=== PATIENT | male | born 1960 | race Caucasian/White ===

== ENCOUNTER 2019-01-13 02:29 | Emergency (ER) | payer OTHER ==
[2019-01-13] MEDS: DEXAMETHASONE 10 MG/ML 1 ML INJ IM (02:53)
[2019-01-13] MEDS: IPRATROPIUM (NEB) 0.5 MG/2.5 ML AMP INH (02:57)
[2019-01-13] MEDS: ALBUTEROL 0.5% (NEB) 2.5 MG/0.5 ML AMP INH (02:57)
== END 2019-01-13 04:43 | disposition home or self-care (01) ==
LOC: FTE 04:43
DX: J45.901 Unspecified asthma with (acute) exacerbation (principal)
CPT/HCPCS: 94644; 96372; 99284-25

== ENCOUNTER 2019-02-11 16:32 | Emergency (ER) | payer OTHER ==
[2019-02-11] MEDS: LIDOCAINE 1% (MPF) 5 ML VIAL INFIL (19:44)
== END 2019-02-11 21:59 | disposition home or self-care (01) ==
LOC: FTE 16:32
DX: K64.5 Perianal venous thrombosis (principal); J45.909 Unspecified asthma, uncomplicated
CPT/HCPCS: 46083; 99284-25

== ENCOUNTER 2019-05-09 04:22 | Emergency (ER) | payer OTHER ==
[2019-05-09] MEDS: METHYLPREDNISOLONE 125 MG INJ IV (04:54)
[2019-05-09] MEDS: ALBUTEROL 0.083% (NEB) 2.5 MG/3 ML AMP HHN ×2 (05:00→05:50)
[2019-05-09] MEDS: IPRATROPIUM (NEB) 0.5 MG/2.5 ML AMP HHN (05:00)
== END 2019-05-09 06:20 | disposition home or self-care (01) ==
LOC: FTE 06:20
DX: J45.901 Unspecified asthma with (acute) exacerbation (principal)
CPT/HCPCS: 94640; 94664; 96374; 99284-25